=== PATIENT | female | born 2000 | race Caucasian/White ===

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

== ENCOUNTER 2018-11-08 18:15 | Emergency (ER) | payer SELFPAY ==
--- NOTE | 2018-11-08 19:34 | UC ---
Abdominal Pain Female HPI - HPI Summary HPI Summary: 18 yo female presents to [facility] [place] [facility] ED with complaints of RLQ pain that began around 1530 today. She describes this pain as a dull ache. Pain is worse with ambulating, but is improved and resolved with sitting and lying down. She has some nausea accompanied with the pain, but is eating and drinking well. Denies fever, recent illness, SOB, chest pain, dysuria, v/d/c, vaginal discharge or bleeding. She has not PMHx. No surgical hx. - History of Current Complaint Chief Complaint: EDAbdPain Stated Complaint: ABD PAIN Time Seen by Provider: 11/08/18 19:33 Hx Obtained From: Patient Hx Last Menstrual Period: 02/02/17 Onset/Duration: Sudden Onset Severity Initially: Moderate Severity Currently: Moderate Pain Intensity: 7 Pain Scale Used: 0-10 Numeric Location: Discrete At: RLQ Radiates: No Allergies/Adverse Reactions: Allergies Allergy/AdvReac Type Severity Reaction Status Date / Time No Known Allergies Allergy Verified 03/02/17 19:37 PMH/Surg Hx/FS Hx/Imm Hx - Additional Past Medical History Additional PMH: None - Surgical History Surgical History: None - Family History Known Family History: Positive: Diabetes, Other - colon cancer - Social History Occupation: Student Lives: With Family Alcohol Use: None Substance Use Type: None Smoking Status (MU): Never Smoked Tobacco Review of Systems All Other Systems Reviewed And Are Negative: Yes Constitutional: Positive: Negative Skin: Positive: Negative Respiratory: Positive: Negative Cardiovascular: Positive: Negative Gastrointestinal: Positive: Abdominal Pain, Nausea Genitourinary: Positive: Negative Neurovascular: Positive: Negative Neurological: Positive: Negative Psychological: Positive: Negative Physical Exam - Summary Physical Exam Summary: GENERAL: NAD. WDWN. No pain distress. SKIN: No rashes, sores, lesions, or open wounds. NECK: Supple. Nontender. No lymphadenopathy. CHEST: CTAB. No r/r/w. No accessory muscle use. Breathing comfortably and in no distress. CV: RRR. Without m/r/g. Pulses intact. Cap refill <2seconds ABDOMEN: Mild TTP RLQ. Psoas sign positive. Negative obturator and heel strike. No rovsing's. Soft. No distention or guarding. No organomegaly. No CVA tenderness. Bowel sounds present NEURO: Alert. PSYCH: Age appropriate behavior. Triage Information Reviewed: Yes Vital Signs: Initial Vital Signs Temp 97.8 F 11/08/18 18:18 Pulse 87 11/08/18 18:18 Resp 20 11/08/18 18:18 BP 120/77 11/08/18 18:18 Pulse Ox 100 11/08/18 18:18 Laboratory Tests 11/08/18 11/08/18 11/08/18 19:42 19:42 19:45 WBC 8.5 RBC 4.45 Hgb 12.9 Hct 39 MCV 87 MCH 29 MCHC 33 RDW 13 Plt Count 180 MPV 9.6 Neut % (Auto) 72.4 Lymph % (Auto) 20.7 [place] % (Auto) 5.8 Eos % (Auto) 0.7 Baso % (Auto) 0.4 Absolute Neuts (auto) 6.1 Absolute Lymphs (auto) 1.7 Absolute Monos (auto) 0.5 Absolute Eos (auto) 0.1 Absolute Basos (auto) 0 Absolute Nucleated RBC 0 Nucleated RBC % 0 Sodium 138 Potassium 3.7 Chloride 105 Carbon Dioxide 29 Anion Gap 4 BUN 9 Creatinine 0.62 Est GFR ( Amer) 148.5 Est GFR (Non-Af Amer) 122.7 BUN/Creatinine Ratio 14.5 Glucose 89 Calcium 9.2 Total Bilirubin 0.40 AST 18 ALT 12 Alkaline Phosphatase 56 C-Reactive Protein < 1.00 Total Protein 7.0 Albumin 4.4 Globulin 2.6 Albumin/Globulin Ratio 1.7 Beta HCG, Quant 0.85 Urine Color Yellow Urine Appearance Cloudy Urine pH 7.0 Ur Specific [place] 1.008 L Urine Protein Negative Urine Ketones Negative Urine Blood Negative Urine Nitrate Negative Urine Bilirubin Negative Urine Urobilinogen Negative Ur Leukocyte Esterase Trace A Urine WBC (Auto) Trace(0-5/hpf) Urine RBC (Auto) Trace(0-2/hpf) Ur Squamous Epith Cells Present A Urine Bacteria 2+ A Urine Glucose Negative Vital Signs Reviewed: Yes Re-Evaluation - Re-Evaluation First Eval Re-Evaluation Time: 22:55 Change: Improved Comment: Reviewed results with pt. She is feeling much better and pain is currently 0/10 Abd Pain Female Course/Dx - Course Course Of Treatment: US abdomen: IMPRESSION: No current sonographic evidence for appendicitis. US transvaginal: IMPRESSION: No adnexal mass or current evidence for torsion with color flow and vascular. waveforms documented. Labs WNL and without leukocytosis. US with no evidence of appendicitis. Will treat her for a possible UTI, given trace leuks on UA, and have her f/u with her PCP in 1-2 days for a recheck. Discussed results and plan with pt and she is in agreement. She currently has no pain and has no symptoms. - Differential Dx/Diagnosis Differential Diagnosis: Appendicitis, Ectopic , Ovarian Cyst, Urinary Tract Infection Provider Diagnosis: RLQ abdominal pain Discharge - Sign-Out/Discharge Documenting (check all that apply): Patient Departure Patient Received Moderate/Deep Sedation with Procedure: No - Discharge Plan Condition: Stable Disposition: HOME Prescriptions: Cephalexin CAP* [Keflex CAP*] 500 mg PO BID #10 cap Patient Education Materials: Urinary Tract Infection in Women (DC), Abdominal Pain (ED) Referrals: Mónica Puentes DO [Primary Care Provider] - 2 Days Additional Instructions: If you develop a fever, shortness of breath, chest pain, new or worsening symptoms - please call your PCP or go to the ED. Please schedule a follow up with your primary doctor in 1-2 days for a recheck. If your pain returns/worsens or if you develop vomiting or fever - please return to the ER - Billing Disposition and Condition Condition: STABLE Disposition: Home
[2018-11-08 19:49] LABS: ABS Basophils 0 10^3/ul (0-0.2); ABS Eosinophils 0.1 10^3/ul (0-0.6); ABS Lymphocytes 1.7 10^3/ul (1.0-4.8); ABS Monocytes 0.5 10^3/ul (0-0.8); ABS Neutrophils 6.1 10^3/ul (1.5-7.7); ABS Nucleated RBC 0 10^3/ul; Eosinophil % 0.7 %; Hematocrit 39 % (35-47); Hemoglobin 12.9 g/dl (12.0-16.0); Lymphocyte % 20.7 %; Mean Corpuscular HGB Conc 33 g/dl (31-36); Mean Corpuscular Hemoglobin 29 pg (27-31); Mean Corpuscular Volume 87 fL (80-97); Mean Platelet Volume 9.6 fL (7.4-10.4); Nucleated Red Blood Cells % 0; Platelet Count 180 10^3/ul (150-450); Red Blood Count 4.45 10^6/ul (4.00-5.40); Red Cell Distribution Width 13 % (10.5-15); White Blood Count 8.5 10^3/ul (3.5-10.8)
[2018-11-08 20:03] LABS: Urine Appearance Cloudy; Urine Bacteria 2+ (Absent); Urine Bilirubin Negative (Negative); Urine Blood Negative (Negative); Urine Color Yellow; Urine Glucose Negative (Negative); Urine Ketones Negative (Negative); Urine Nitrite Negative (Negative); Urine Protein Negative (Negative); Urine Red Blood Cell Trace(0-2/hpf) (Absent); Urine Specific Gravity 1.008 (1.010-1.030); Urine Squamous Epithelial Cell Present (Absent); Urine Urobilinogen Negative (Negative); Urine White Blood Cell Trace(0-5/hpf) (Absent)
[2018-11-08 20:12] LABS: ALT 12 U/L (7-52); AST 18 U/L (13-39); Albumin 4.4 g/dL (3.2-5.2); Albumin/Globulin Ratio 1.7 (1-3); Alkaline Phosphatase 56 U/L (34-104); Anion Gap 4 mmol/L (2-11); BUN/Creatinine Ratio 14.5 (8-20); Blood Urea Nitrogen 9 mg/dL (6-24); C Reactive Protein < 1.00 mg/L (<8.01); CO2 Carbon Dioxide 29 mmol/L (22-32); Calcium 9.2 mg/dL (8.6-10.3); Chloride 105 mmol/L (101-111); EGFR African American 148.5 (>60); EGFR Non-African American 122.7 (>60); Globulin 2.6 g/dL (2-4); Glucose 89 mg/dL (70-100); Potassium 3.7 mmol/L (3.5-5.0); Sodium 138 mmol/L (135-145)
[2018-11-08 21:22] LABS: HCG Pregnancy 0.85 mIU/mL
[2018-11-08] MEDS ORDERED: Cephalexin CAP* 500 MG PO ONE (22:55)
[2018-11-08 23:27] VITALS: BP 91/76
== END 2018-11-08 23:20 | disposition home or self-care (01) ==
LOC: ED 18:15
DX: R10.31 Right lower quadrant pain (principal)
CPT/HCPCS: 36415; 76705; 76856; 80053; 81003; 81015; 84702; 85025; 86140; 87086; 99283; A9270-GY